=== PATIENT | female | born 1965 | race American Indian/Alaskan Native ===

== ENCOUNTER 2020-11-18 10:05 | Outpatient (CLI) | payer OTHER ==
[2020-11-18 10:48] LABS: Albumin 4.2 g/dL (3.9-5); Bilirubin,Direct 0.3 mg/dL (0-0.2)
== END 2020-11-18 10:06 | disposition home or self-care (01) ==
LOC: LAB 10:05
PROVIDERS: ATTEND Internal Medicine
DX: I50.9 Heart failure, unspecified (principal); H54.7 Unspecified visual loss; R41.3 Other amnesia
CPT/HCPCS: 36415; 80076